=== PATIENT | female | born 2000 | race Caucasian/White ===

== ENCOUNTER → 2020-12-31 10:56 | Outpatient (BNVA) | payer OTHER, MEDICAID, SELFPAY | PROVIDERS: PCP Internal Medicine; Referring Provider Internal Medicine; Visit Provider Surgery ==

== ENCOUNTER 2021-01-26 07:28 | Day surgery (SDC) | payer OTHER, MEDICAID, SELFPAY ==
--- NOTE | 2021-01-25 09:35 | HO.ANESPROP2 ---
Documented by User: Zhanna Sharp NP 01/25/21 09:36 HPI - Anesthesia Eval Consult details Narrative: 20yo F for EUA, Lateral Sphincterotomy PMFSH Active Problems Active Problems: All Active Problems (Updated 01/20/21 @ 10:33 by Modesta Azar RN) Internal hemorrhoid (Acute) Anal fissure (Acute) Past Medical History Medical History (Updated 01/20/21 @ 10:33 by Modesta Azar RN) Anal fissure History of depression Family History Family History Other Cervical cancer Colon cancer Prostate cancer Surgical History Surgical History No pertinent past surgical history Social History Social History Alcohol intake: never Patient Tobacco Use Status: Never used Tobacco Use of substances other than those prescribed or required for medical reasons: Yes Are you DNR?: No Advance Directives: No Advance Directives Information Provided: Yes Recently lost weight without trying: No Nutrition Risks: No Nutritional Risk Meds Allergies Allergy/AdvReac Type Severity Reaction Status Date / Time No Known Allergies Allergy Verified 01/20/21 10:33 [No Known Allergies*] Home Medications Medication Instructions Recorded Confirmed Last Taken Type levonorgestrel-ethinyl estradiol 1 tab PO DAILY 07/13/20 01/20/21 Unknown History 0.1 mg-20 mcg tablet loratadine 10 mg tablet 10 mg PO DAILY 07/13/20 01/20/21 Unknown History Exam Exam Date and Time: January 25, 2021 0935 Assessment and Plan Assessment Anesthesia Assessment: Chart Reviewed Documented by User: Evelio Mcduffie 01/26/21 09:36 PMFSH Past Medical History Medical History (Updated 01/20/21 @ 10:33 by Modesta Azar RN) Anal fissure History of depression Functional capacity: independent ambulation Family History Family History Other Cervical cancer Colon cancer Prostate cancer Family history of problems with anesthesia: No Surgical History Surgical History No pertinent past surgical history Social History Social History Alcohol intake: never Patient Tobacco Use Status: Never used Tobacco Use of substances other than those prescribed or required for medical reasons: Yes Are you DNR?: No Advance Directives: No Advance Directives Information Provided: Yes Recently lost weight without trying: No Nutrition Risks: No Nutritional Risk Meds Allergies Allergy/AdvReac Type Severity Reaction Status Date / Time No Known Allergies Allergy Verified 01/20/21 10:33 [No Known Allergies*] Home Medications Medication Instructions Recorded Confirmed Last Taken Type levonorgestrel-ethinyl estradiol 1 tab PO DAILY 07/13/20 01/20/21 Unknown History 0.1 mg-20 mcg tablet loratadine 10 mg tablet 10 mg PO DAILY 07/13/20 01/20/21 Unknown History Exam Airway Mallampati Class: II TM Dist: >3cm Neck ROM: Full Loose/Missing/Broken Teeth: Yes Heart: rrr Lungs: bl breath sounds Assessment and Plan Assessment Anesthesia Assessment: Anesthesia Plan Discussed Final Anesthetic Review Family History of Problems with Anesthesia: No ASA Class: II Final Preanesthetic Review: Meds/Allgs Chart Reviewed and Anes Risks/Benef Reviewed Patient Risk: Intermediate Procedure Risk: Intermediate Anesthetic Plan Anesthetic Plan: GA
[2021-01-26 07:50] VITALS: BMI 34.7
[2021-01-26 08:01] LABS: UPreg QC Valid YES; Urine Pregnancy NEGATIVE (NEGATIVE)
[2021-01-26 08:02] VITALS: BP 122/69; PULSE 85; RESP 16; TEMP 36.7; O2SAT 96
--- NOTE | 2021-01-26 08:13 | PC.NURSE ---
had a baby eight months ago and denies breast feeding.
[2021-01-26] MEDS: Lactated Ringers 1,000 ML 100 ML IVCONT (08:22)
--- NOTE | 2021-01-26 09:29 | MHC.SHP ---
Pre-Procedural Eval Section A Date of Service: 01/26/21 Section B Chief Complaint: Anal Fissure Allergies: Allergies Allergy/AdvReac Type Severity Reaction Status Date / Time No Known Allergies Allergy Verified 01/20/21 10:33 [No Known Allergies*] Plan I have reviewed the history and physical and performed a pertinent physical examination on my patient. No changes have occurred unless specified.
--- NOTE | 2021-01-26 10:33 | W.PM.OPN ---
Operative Note Operative Note Date of Service: 01/26/21 Narrative: Preop diagnosis: Anal fissure Postop diagnosis: Anal fissure Procedure: Exam under anesthesia, lateral internal sphincterotomy Surgeon: Justin Kern MD The patient is a 20-year-old female who has had anal pain with bowel movements for several now. Examination in the office was consistent with an anal fissure in the anterior midline. She also had hypertonic sphincter. I explained to her the option of proceeding with sphincterotomy. He discussed the risks including but not limited to bleeding, infections, postop pain as well as the benefits and alternatives and she wanted to proceed. She was brought to the operating room and placed in prone kareem-knife position under general anesthesia via endotracheal tube. The buttocks were retracted with wide tape laterally. The perianal area was prepped and draped usual sterile fashion. A surgical time-out was done. The patient received Cefotan 2 g IV preoperatively. I infiltrated the perianal area with lidocaine 1%. I retracted the buttocks and by doing so was able to visualize an anterior midline fissure in the distal anoderm. I inserted abuse Jacome retractor and examined the anal canal circumferentially. Again this anal fissure and the distal anoderm was noted with visible internal sphincter fibers. There were note of small internal hemorrhoids. Other than that, the anal exam was unremarkable. I palpated the intersphincteric groove on the left. An incision on the skin overlying this groove using blade 15. I then used blunt dissection with the hemostat to define the internal sphincter fibers. The hemostat was placed in the intersphincteric plane to protect the external sphincter fibers. I then divided the internal sphincter fibers using electrocautery down to the level of the dentate line. I then closed the incision with the running chromic 3-0 stitch. I infiltrated the perianal area with Marcaine 0.5% for postop analgesia. The procedure was then completed . The patient tolerated procedure well. There were no complications noted. Initial and final counts of sponges and instruments were correct. Estimated blood loss was about 2 cc The patient is extubated without difficulty and transferred to the recovery room with stable vital signs.
[2021-01-26 10:51] VITALS: BP 147/78; PULSE 91; RESP 15; TEMP 36.6; O2SAT 99
[2021-01-26 10:56] VITALS: BP 135/91; PULSE 95; RESP 16; O2SAT 99
[2021-01-26 11:01] VITALS: BP 130/87; PULSE 80; RESP 16; O2SAT 100
[2021-01-26 11:06] VITALS: BP 130/77; PULSE 99; RESP 16; O2SAT 99
[2021-01-26 11:21] VITALS: BP 138/86; PULSE 72; RESP 16; TEMP 36.7; O2SAT 99
== END 2021-01-26 12:01 | disposition home or self-care (01) ==
PROVIDERS: Nurse Practitioner; PCP Internal Medicine; Visit Provider Surgery
PROC: (CPT 46200; principal; 2021-01-26 09:10)
DX: K60.2 Anal fissure, unspecified (principal); K64.8 Other hemorrhoids; F32.9 Major depressive disorder, single episode, unspecified; Z79.899 Other long term (current) drug therapy
CPT/HCPCS: 46200; 81025; J1100; J2250; J2405; J3010

== ENCOUNTER → 2021-02-08 10:07 | Outpatient (BNVA) | payer OTHER, MEDICAID, SELFPAY | PROVIDERS: PCP Internal Medicine; Referring Provider Internal Medicine; Visit Provider Surgery ==

== ENCOUNTER 2021-09-11 17:56 | Emergency (ER) | payer OTHER, MEDICAID, SELFPAY ==
--- NOTE | ~2021-09-11 | CT_ITS ---
EXAMINATION: CT ABDOMEN AND PELVIS WITHOUT CONTRAST CLINICAL INFORMATION: Right flank pain COMPARISON: None TECHNIQUE: Multidetector volumetric imaging was performed from the superior aspect of the liver through the pubic symphysis. Sagittal and coronal reformatted images were obtained on the technologist's workstation. This CT examination was performed using dose optimization techniques as appropriate, variously including the following: *Automated exposure control *Adjustment of mA and/or kV according to patient size (this includes techniques or standardized protocols for targeted exams where dose is matched to indication/reason for exam; i.e. extremities or head) *Use of iterative reconstruction technique DLP: 854 mGy-cm FINDINGS: LUNG BASES: The visualized lung bases are unremarkable. LIVER, GALLBLADDER, AND BILIARY TREE: The liver is normal in size, shape, and attenuation. No focal hepatic lesion or biliary ductal dilatation is present. The gallbladder is contracted with no evidence of radiopaque gallstones, gallbladder wall thickening, or obvious pericholecystic inflammatory changes. PANCREAS: Unremarkable. SPLEEN: Unremarkable. ADRENAL GLANDS: Unremarkable. KIDNEYS AND URETERS: The kidneys are normal in size, shape, and attenuation. No hydronephrosis, hydroureter, or calculi seen. No perinephric stranding. BLADDER: Unremarkable. GASTROINTESTINAL TRACT: The stomach is unremarkable. Normal caliber small bowel. No obstruction. Normal appendix. No colonic wall thickening or acute inflammation. No free air. Trace pelvic free fluid. ABDOMINAL WALL: No significant hernia is appreciated. LYMPH NODES: Normal. VASCULAR: Unremarkable. PELVIC VISCERA: Anteverted uterus. Trace free fluid in the pelvis. This appears simple. Dominant left ovarian follicle measures 3.5 cm. OSSEOUS STRUCTURES: No acute or suspicious osseous abnormality. CT/CT abdomen pelvis wo con IMPRESSION: No acute findings in the abdomen or pelvis. No hydronephrosis or nephrolithiasis. Normal appendix. There is trace free fluid in the pelvis which may be physiologic. Ruptured ovarian cyst is a possibility. Fleischner guidelines were followed.
[2021-09-11 18:02] VITALS: BP 142/81; PULSE 83; RESP 18; TEMP 36.8; O2SAT 99; BMI 47.5
[2021-09-11 18:18] LABS: Hematocrit 40.9 % (37.0-47.0); Hemoglobin 13.6 g/dl (12.0-16.0); Mean Corpuscular HGB Conc 33.3 g/dl (31.0-35.0); Mean Corpuscular Hemoglobin 29.4 pg (27.0-33.0); Mean Corpuscular Volume 88.5 fL (80.0-98.0); Mean Platelet Volume 10.2 fL (9.4-12.3); Platelet Count 265 X10*3/uL (160-400); Red Blood Count 4.62 X10*6/uL (4.20-5.50); Red Cell Distribution Width 11.9 % (11.0-16.0); White Blood Count 7.3 X10*3/uL (4.8-10.8)
[2021-09-11 18:37] LABS: Anion Gap 13 (12-20); Blood Urea Nitrogen 13 mg/dL (9-16); Calcium 9.3 mg/dL (8.4-10.2); Carbon Dioxide 24 mmol/L (22-29); Chloride 108 mmol/L (96-108); Creatinine Clr Calc Pharmacy 98.3; Estimated Glomerular Filt Rate > 60; Glucose Random 101 mg/dL (60-115); Lipase 39 U/L (8-78); Potassium 4.3 mmol/L (3.3-5.1); Sodium 141 mmol/L (135-145)
--- NOTE | 2021-09-11 19:48 | ED.ABDPAIN ---
HPI - Abdominal Pain General Chief Complaint: Abdominal Pain Stated Complaint: lower abdominal pain Time Seen by Provider: 09/11/21 19:42 Source: patient Mode of arrival: ambulatory Limitations: no limitations History of Present Illness MD elicited complaint: abdominal pain and flank pain Pertinent past history: none Onset (ago): minute(s) (just CLERK RATING) Pain Consistency: now resolved Location: RLQ and R flank Severity: moderate Quality: stabbing Radiation: bilateral flank Migration to: no migration Exacerbating factors: nothing Relieving factors: nothing Associated symptoms: nausea Related Data Home Medications Medication Instructions Recorded Confirmed levonorgestrel-ethinyl estradiol 1 tab PO DAILY 07/13/20 01/20/21 0.1 mg-20 mcg tablet loratadine 10 mg tablet 10 mg PO DAILY 07/13/20 01/20/21 Previous Rx's Medication Instructions Recorded phenylephrine 0.25 %-cocoa butter 1 supp MS BID-QID PRN hemorrhoids 07/13/20 88.44 % rectal suppository #24 ea (Preparation H(phenyleph,cocoa buttr)) ibuprofen 600 mg tablet 600 mg PO Q6H PRN pain #30 tabs 01/26/21 oxycodone-acetaminophen 5 mg-325 1 tab PO Q4-6H PRN pain, severe 01/26/21 mg tablet (Percocet) #30 tabs ibuprofen 600 mg tablet 600 mg PO Q6H PRN pain #30 tabs 09/11/21 ondansetron 4 mg disintegrating 4 mg PO Q8H PRN nausea and 09/11/21 tablet vomiting #20 tabs Allergies Allergy/AdvReac Type Severity Reaction Status Date / Time No Known Allergies Allergy Verified 02/08/21 10:42 [No Known Allergies*] Review of Systems Review of Systems Constitutional : No Weight loss, No Fever, No Chills ENT/Mouth : No sore throat, No Rhinorrhea Eyes: No Swelling, No Redness Cardiovascular : No Chest Pain, No SOB, NoEdema Respiratory : No Cough, No Sputum, No Wheezing Gastrointestinal : Positive Nausea, Positive Vomiting, no Diarrhea, positive abdominal Pain, No Hematochezia, No Melena Genitourinary : No Dysuria, No Urinary Frequency, No Hematuria, No Urgency Musculoskeletal : No joint pain, No Myalgias, No Joint Swelling Skin : No Skin Lesions, No rash Neuro : No Weakness, No Numbness, No Dizziness, No Headache Psych : No Anxiety/Panic, No Depression Heme/Lymph: No Bruising, No Lymphadenopathy Endocrine : No Polyuria, No Polydipsia All other systems reviewed and are negative. [facility] Past Medical History Medical History Anal fissure History of depression Surgical History History of rectal sphincterotomy (~2020) Family History Family History Other Cervical cancer Colon cancer Prostate cancer Social History Social History Alcohol intake: never Patient Tobacco Use Status: Never used Tobacco Advance Directives: No Physical Exam ED Vital Signs: Vital Signs - 24 hr 09/11/21 18:02 09/11/21 21:02 Temperature 98.2 F 97.8 F Pulse Rate 83 77 Respiratory Rate 18 18 Blood Pressure 142/81 H 121/61 Pulse Oximetry 99 100 Oxygen Delivery Method Room Air Room Air BMI result Body Mass Index 47.5 Appearance: Alert. Oriented X3. No acute distress. Eyes: Pupils equal, round and reactive to light. ENT: Pharynx normal. Neck: Normal inspection. Neck supple. CVS: Normal heart rate and rhythm. Pulses normal. Respiratory: No respiratory distress. Breath sounds normal. Abdomen: Soft and very mild ttp in R side of abdomen Skin: Skin warm and dry. Normal skin color. Normal skin turgor. Extremities: No lower extremity edema. No calf ttp Neuro: Oriented X 3. No motor deficit. No sensory deficit. Course Course Course Narrative: stable for DC at this time MDM - Abdominal Pain MDM Narrative Medical decision making narrative: 20 yo female with no sig PMH had abrupt onset R sided pain with some nausea the pain has resolved now, she has no prior hx of ovarian cysts or kidney stones was doing well prior to this. At this time abdomen very mild ttp on R side of abdomen seems unusual for cyst rupture. Doubt appendicitis given abrupt onset will obtain labs, UA and CT scan for renal colic. Lab Data Result diagrams: 09/11/21 18:13 09/11/21 18:13 Labs: Lab Results 09/11/21 09/11/21 09/11/21 Range/Units 18:13 18:13 20:29 WBC 7.3 (4.8-10.8) X10*3/uL RBC 4.62 (4.20-5.50) X10*6/uL Hgb 13.6 (12.0-16.0) g/dl Hct 40.9 (37.0-47.0) % MCV 88.5 (80.0-98.0) fL MCH 29.4 (27.0-33.0) pg MCHC 33.3 (31.0-35.0) g/dl RDW 11.9 (11.0-16.0) % Plt Count 265 (160-400) X10*3/uL MPV 10.2 (9.4-12.3) fL Absolute Nucleated RBC 0.000 (0.0-0.012) X10*3/uL Nucleated RBC % (auto) 0.0 (0.0-0.2) /100WBC Sodium 141 (135-145) mmol/L Potassium 4.3 (3.3-5.1) mmol/L Chloride 108 (96-108) mmol/L Carbon Dioxide 24 (22-29) mmol/L Anion Gap 13 (12-20) BUN 13 (9-16) mg/dL Creatinine 0.98 (0.5-1.4) mg/dL Estim Creat Clear Calc 98.3 Estimated GFR > 60 Random Glucose 101 (60-115) mg/dL Calcium 9.3 (8.4-10.2) mg/dL Total Bilirubin 0.3 (0.0-1.0) mg/dL Direct Bilirubin < 0.2 (0.0-0.5) mg/dL AST 16 (5-31) U/L ALT 16 (0-31) U/L Alkaline Phosphatase 66 (39-117) U/L Total Protein 7.0 (6.5-8.0) g/dL Albumin 4.3 (3.5-5.0) g/dL Lipase 39 (8-78) U/L Urine Color YELLOW Urine Appearance CLEAR Urine pH 6.0 (5.0-8.0) Ur Specific Bath >= 1.030 H (1.005-1.025) Urine Protein NEG (NEG-TRACE) MG/DL Urine Glucose (UA) NEG (NEG) MG/DL Urine Ketones NEG (NEG) MG/DL Urine Blood NEG (NEG) Urine Nitrite NEG (NEG) Ur Leukocyte Esterase NEG (NEG) Urine Test (NEGATIVE) 09/11/21 Range/Units 20:29 WBC (4.8-10.8) X10*3/uL RBC (4.20-5.50) X10*6/uL Hgb (12.0-16.0) g/dl Hct (37.0-47.0) % MCV (80.0-98.0) fL MCH (27.0-33.0) pg MCHC (31.0-35.0) g/dl RDW (11.0-16.0) % Plt Count (160-400) X10*3/uL MPV (9.4-12.3) fL Absolute Nucleated RBC (0.0-0.012) X10*3/uL Nucleated RBC % (auto) (0.0-0.2) /100WBC Sodium (135-145) mmol/L Potassium (3.3-5.1) mmol/L Chloride (96-108) mmol/L Carbon Dioxide (22-29) mmol/L Anion Gap (12-20) BUN (9-16) mg/dL Creatinine (0.5-1.4) mg/dL Estim Creat Clear Calc Estimated GFR Random Glucose (60-115) mg/dL Calcium (8.4-10.2) mg/dL Total Bilirubin (0.0-1.0) mg/dL Direct Bilirubin (0.0-0.5) mg/dL AST (5-31) U/L ALT (0-31) U/L Alkaline Phosphatase (39-117) U/L Total Protein (6.5-8.0) g/dL Albumin (3.5-5.0) g/dL Lipase (8-78) U/L Urine Color Urine Appearance Urine pH (5.0-8.0) Ur Specific Bath (1.005-1.025) Urine Protein (NEG-TRACE) MG/DL Urine Glucose (UA) (NEG) MG/DL Urine Ketones (NEG) MG/DL Urine Blood (NEG) Urine Nitrite (NEG) Ur Leukocyte Esterase (NEG) Urine Test NEGATIVE (NEGATIVE) Discharge Plan Discharge Clinical Impression: Abdominal pain Qualifiers: Abdominal location: right lower quadrant Qualified Code(s): R10.31 - Right lower quadrant pain Patient Disposition: Home, Self-Care Instructions: Abdominal Pain (ED), Ruptured Ovarian Cyst (ED) Additional Instructions: return to ED for any worsening symptoms or concerns possible ruptured ovarian cyst on CT scan come back for worsening pain, dizziness, weakness Prescriptions: New ibuprofen 600 mg tablet 600 mg PO Q6H PRN (Reason: pain) Qty: 30 0RF ondansetron 4 mg tablet,disintegrating 4 mg PO Q8H PRN (Reason: nausea and vomiting) Qty: 20 0RF No Action oxycodone-acetaminophen [Percocet] 5-325 mg tablet 1 tab PO Q4-6H PRN (Reason: pain, severe) Qty: 30 0RF ibuprofen 600 mg tablet 600 mg PO Q6H PRN (Reason: pain) Qty: 30 0RF levonorgestrel-ethinyl estrad 0.1-20 mg-mcg tablet 1 tab PO DAILY loratadine 10 mg tablet 10 mg PO DAILY Preparation H(pe,cb) 0.25-88.44 % suppository 1 supp MS BID-QID PRN (Reason: hemorrhoids) Qty: 24 0RF Stand Alone Forms: Work/School Release
[2021-09-11 20:09] LABS: Alanine Aminotransferase 16 U/L (0-31); Albumin Level 4.3 g/dL (3.5-5.0); Alkaline Phosphatase 66 U/L (39-117); Aspartate Amino Transferase 16 U/L (5-31); Bilirubin Direct < 0.2 mg/dL (0.0-0.5); Bilirubin Total 0.3 mg/dL (0.0-1.0)
[2021-09-11 20:36] LABS: Appearance Urine CLEAR; Color Urine YELLOW; Glucose Urine UA NEG (NEG); Leukocyte Esterase Urine NEG (NEG); Nitrite Urine NEG (NEG); Specific Gravity - Urine >= 1.030 (1.005-1.025); Urine Blood NEG (NEG); Urine Ketones NEG (NEG); Urine Protein NEG (NEG-TRACE)
[2021-09-11 20:38] LABS: UPreg QC Valid YES; Urine Pregnancy NEGATIVE (NEGATIVE)
[2021-09-11 21:02] VITALS: BP 121/61; PULSE 77; RESP 18; TEMP 36.6; O2SAT 100
[2021-09-11 23:06] VITALS: BP 118/64; PULSE 75; RESP 18; TEMP 36.8; O2SAT 99
== END 2021-09-11 23:07 | disposition home or self-care (01) ==
PROVIDERS: Emergency Provider Emergency Medicine
DX: R10.31 Right lower quadrant pain (principal)
CPT/HCPCS: 36415; 74176; 80048; 80076; 81003; 81025; 83690; 85027; 99283; 99284

== ENCOUNTER 2021-12-23 10:17 | Outpatient (REF) | payer OTHER, MEDICAID, SELFPAY ==
[2021-12-23 12:22] LABS: TSH reflex Free T4 3.51 uIU/mL (0.32-4.0); Vitamin D 25-OH Total 22.8 ng/mL (>30)
[2021-12-23 12:23] LABS: Cholesterol 220 mg/dL; Glucose Fasting 89 mg/dL (60-99); Triglycerides 70 mg/dL
[2021-12-23 12:37] LABS: HDL Cholesterol 94 mg/dL; LDL Cholesterol Calculated 112 mg/dl
== END 2021-12-23 10:18 | disposition home or self-care (01) ==
LOC: HO.HMGCLDS 10:17
PROVIDERS: PCP Internal Medicine; Visit Provider Internal Medicine
DX: Z00.01 Encounter for general adult medical examination with abnormal findings (principal); F41.9 Anxiety disorder, unspecified; F32.A Depression, unspecified
CPT/HCPCS: 36415; 80061; 82306; 82947; 84443